=== PATIENT | male | born 1960 | race Caucasian/White ===

== ENCOUNTER 2020-06-29 12:14 | Emergency (ER) | payer OTHER, BC ==
--- NOTE | 2020-06-29 13:04 | CR ---
EXAMINATION: Hand Comp Min 3V Rt SEX: Male AGE: 60 years CLINICAL HISTORY: 60-year-old male injured right hand (caught in generator fan). Interpretation: abnormal. Acute nondisplaced FRACTURES respectively distal phalanx right thumb and middle phalanx adjacent index (second) finger satisfactory apposed and nearly anatomically aligned. Bandage artifact around the index finger. No other foreign bodies and no sign of other fracture or dislocation right hand or wrist. Early reactive arthritic changes first metacarpal phalangeal joint right thumb.
[2020-06-29] MEDS ORDERED: Morphine 2 MG/ML SYRINGE IM ONE (13:33)
--- NOTE | 2020-06-29 13:39 | EDM.PDOC ---
ED HPI GENERAL MEDICAL PROBLEM - General Chief Complaint: Laceration Stated Complaint: [id number] FINGER CAUGHT IN FAN Time Seen by Provider: 06/29/20 12:50 Source of Information: Reports: Patient History Limitations: Reports: No Limitations - History of Present Illness INITIAL COMMENTS - FREE TEXT/NARRATIVE: This 60 yo male patient reports to the ED due to a right hand injury. The patient reports he was working on a generator when his wrench got caught causing his hand to be pulled into the metal fan blades. The patient has a laceration to his 1st, 2nd and 3rd fingers of his right hand. Onset: Today Duration: Minutes: Location: Reports: Upper Extremity, Right Quality: Reports: Ache, Sharp Severity: Moderate Improves with: Reports: None Worsens with: Reports: None Context: Reports: Activity Associated Symptoms: Reports: No Other Symptoms Right Hand Pain Score (Numeric/FACES): 9 - Related Data Allergies Allergy/AdvReac Type Severity Reaction Status Date / Time No Known Allergies Allergy Verified 06/29/20 12:31 Home Meds: Home Meds Aspirin [Halfprin] 81 mg PO DAILY 09/10/19 [History] Naproxen Sodium [Aleve] 550 mg PO DAILY 09/10/19 [History] Sildenafil [Viagra] 50 mg PO ASDIRECTED PRN 09/10/19 [History] Simvastatin 30 mg PO DAILY 09/10/19 [History] amLODIPine [Norvasc] 5 mg PO DAILY 09/10/19 [History] Past Medical History HEENT History: Reports: Impaired Vision Cardiovascular History: Reports: High Cholesterol, Hypertension Respiratory History: Reports: None Gastrointestinal History: Reports: Colon Polyp, Other (See Below) Other Gastrointestinal History: S/P COLONIC TUBULAR ADENOMA Genitourinary History: Reports: Other (See Below) Other Genitourinary History: ERECTILE DYSFUNCTION Musculoskeletal History: Reports: Arthritis Neurological History: Reports: None Psychiatric History: Reports: None Endocrine/Metabolic History: Reports: None Hematologic History: Reports: None Immunologic History: Reports: None Oncologic (Cancer) History: Reports: None Dermatologic History: Reports: None - Infectious Disease History Infectious Disease History: Reports: None - Past Surgical History Head Surgeries/Procedures: Reports: None HEENT Surgical History: Reports: Other (See Below) Other HEENT Surgeries/Procedures: THAO eyelid bioplasty GI Surgical History: Reports: Colonoscopy, Polypectomy Social & Family History - Family History Family Medical History: No Pertinent Family History - Tobacco Use Tobacco Use Status *Q: Current Every Day Tobacco User Years of Tobacco use: 30 Packs/Tins Daily: 0.5 - Caffeine Use Caffeine Use: Reports: Coffee - Recreational Drug Use Recreational Drug Use: No ED ROS GENERAL - Review of Systems Review Of Systems: Comprehensive ROS is negative, except as noted in HPI. ED EXAM, SKIN/RASH Exam: See Below Exam Limited By: No Limitations General Appearance: Alert, WD/WN, Moderate Distress Eye Exam: Bilateral Eye: EOMI, Normal Inspection, PERRL Ears: Normal External Exam, Normal Canal, Hearing Grossly Normal, Normal TMs Nose: Normal Inspection, Normal Mucosa, No Blood Throat/Mouth: Normal Inspection, Normal Lips, Normal Teeth, Normal Gums, Normal Oropharynx, Normal Voice, No Airway Compromise Head: Atraumatic, Normocephalic Neck: Normal Inspection, Supple, Non-Tender, Full Range of Motion Respiratory/Chest: No Respiratory Distress, Lungs Clear, Normal Breath Sounds, No Accessory Muscle Use, Chest Non-Tender Cardiovascular: Normal Peripheral Pulses, Regular Rate, Rhythm, No Edema, No Gallop, No JVD, No Murmur, No Rub GI/Abdominal: Normal Bowel Sounds, Soft, Non-Tender, No Organomegaly, No Distention, No Abnormal Bruit, No Mass (Male) Exam: Deferred Rectal (Males) Exam: Deferred Back Exam: Normal Inspection, Full Range of Motion, NT Extremities: Arm Pain (right hand pain with lacerations) Neurological: Alert, Oriented, CN II-XII Intact, Normal Cognition, Normal Gait, Normal Reflexes, No Motor/Sensory Deficits Psychiatric: Normal Affect, Normal Mood Skin: Warm, Dry, Normal Color, No Rash, Wound/Incision (distal 1st finger, distal 2nd finger and over the extensor surface of 3rd PIP joint) Location, Skin: Upper Extremity, Right Characteristics: Linear Associated features: Warmth, Tenderness, Swelling Lymphatic: No Adenopathy Course - Vital Signs Last Recorded V/S: Last Vital Signs Temp 97.2 F 06/29/20 12:33 Pulse 82 06/29/20 12:33 Resp 18 06/29/20 12:33 BP 152/92 H 06/29/20 12:33 Pulse Ox 97 06/29/20 12:33 - Orders/Labs/Meds Orders: Active Orders 24 hr Category Date Time Status Morphine Med 06/29/20 13:33 Once 2 mg IM ONETIME ONE Medication Orders Morphine Sulfate (Morphine 2 Mg/Ml Syringe) 2 mg IM ONETIME ONE Stop: 06/29/20 13:34 Meds: Medications Generic Name Dose Route Start Last Admin Trade Name Srikanth PRN Reason Stop Dose Admin Morphine Sulfate 2 mg 06/29/20 13:33 Morphine 2 Mg/Ml Syringe IM 06/29/20 13:34 ONETIME ONE - Re-Assessments/Exams Free Text/Narrative Re-Assessment/Exam: 06/29/20 13:38 Discussed the nature of injury and x-ray results with Dr. Lynch (Orthopedics with [facility] in [place]). Dr. Lynch advised to bandage the patient's fingers and send him to the ED at [facility]. 06/29/20 13:39 The patient reports his tetanus is up to date through the [employer]. Departure - Departure Time of Disposition: 13:39 Disposition: DC/Tfer to Acute Hospital 02 Condition: Fair Clinical Impression: Finger fracture, right Qualifiers: Encounter type: initial encounter Finger: thumb Fracture type: open Phalanx: distal Fracture alignment: nondisplaced Qualified Code(s): S62.524B - Nondisplaced fracture of distal phalanx of right thumb, initial encounter for open fracture Fingers fractured Qualifiers: Encounter type: initial encounter Finger: index finger Fracture type: open Phalanx: middle Fracture alignment: nondisplaced Laterality: right Qualified Code(s): S62.650B - Nondisplaced fracture of middle phalanx of right index finger, initial encounter for open fracture - Discharge Information *PRESCRIPTION DRUG MONITORING PROGRAM REVIEWED*: Not Applicable *COPY OF PRESCRIPTION DRUG MONITORING REPORT IN PATIENT TIFFANY: Not Applicable Forms: Interfacility Transfer EMTALA Care Plan Goals: Discussed the patient's history, examination and x-ray results with Dr. Lynch (Orthopedics with [facility] in [place]). Dr. Lynch accepted the patient for continued evaluation and management. The patient will be transported by private vehicle. The patient was advised to not eat or drink anything until seen at [facility] in [place]. Sepsis Event Note (ED) - Evaluation Sepsis Screening Result: No Definite Risk - Focused Exam Vital Signs: Vital Signs Temp Pulse Resp BP Pulse Ox 06/29/20 12:33 97.2 F 82 18 152/92 H 97 - My Orders Last 24 Hours: My Active Orders 06/29/20 13:33 Morphine 2 mg IM ONETIME ONE - Assessment/Plan Last 24 Hours: My Active Orders 06/29/20 13:33 Morphine 2 mg IM ONETIME ONE
== END 2020-06-29 13:58 ==
LOC: DL.ED 12:14
DX: S62.524B Nondisplaced fracture of distal phalanx of right thumb, initial encounter for open fracture (principal); S62.650B Nondisplaced fracture of middle phalanx of right index finger, initial encounter for open fracture; M19.90 Unspecified osteoarthritis, unspecified site; E78.00 Pure hypercholesterolemia, unspecified; I10 Essential (primary) hypertension; Z79.82 Long term (current) use of aspirin; Z79.899 Other long term (current) drug therapy; Z72.0 Tobacco use; W23.0XXA Caught, crushed, jammed, or pinched between moving objects, initial encounter
CPT/HCPCS: 73130-RT; 96372; 99284; 99284-25; J2270